=== PATIENT | female | born 1955 | race Caucasian/White ===

== ENCOUNTER 2021-04-20 08:55 | Inpatient (IN) | payer OTHER ==
[~2021-04-20] VITALS: Ht 152.4 cm; Wt 70.3 kg
[~2021-04-20 08:55] MED LIST: CEFADROXIL500 MG PO; CELEXA20 MG PO; COZAAR50 MG PO; D3 + K2 DOTS 11 EACH PO; LIPITOR20 MG PO; PREVACID30 MG PO; TRAMADOL HCL-AP1 TAB PO
[2021-04-22] MEDS ORDERED: VITAMIN D3250 MCG (09:52)
[2021-04-22] MEDS ORDERED: HYDROCHLOROTHIA25 MG (09:53)
[2021-04-22] MEDS ORDERED: ATORVASTATIN CA10 MG (09:53)
[2021-04-22] MEDS ORDERED: CLONAZEPAM0.5 MG (09:53)
[2021-04-22] MEDS ORDERED: B-121000 MC1 (09:53)
[2021-04-24] MEDS ORDERED: NEURONTIN300 MG PO (09:45)
[2021-04-24] MEDS ORDERED: KETO10TA2 PO (09:45)
[2021-04-24] MEDS ORDERED: ULTRAM50 MG PO (09:45)
[2021-04-24] MEDS ORDERED: TYLENOL ARTHRI650 MG PO (09:45)
[2021-04-24] MEDS ORDERED: MIRALAX17 GM PO (09:45)
== END 2021-04-27 09:23 | disposition home or self-care (01) | DRG 337 ==
LOC: SURH 04-22 06:53 → O/R 04-22 06:53 → SURH 04-22 07:00
PROVIDERS: ADMIT Surgery; ATTEND Surgery
PROC: 0WUF0JZ Supplement Abdominal Wall with Synthetic Substitute, Open Approach (ICD-10-PCS; 2021-04-22)
PROC: 0WQF0ZZ Repair Abdominal Wall, Open Approach (ICD-10-PCS; 2021-04-22)
PROC: 0DNW0ZZ Release Peritoneum, Open Approach (ICD-10-PCS; principal; 2021-04-22 07:00)
DX: K43.0 Incisional hernia with obstruction, without gangrene (principal); K42.0 Umbilical hernia with obstruction, without gangrene; N73.6 Female pelvic peritoneal adhesions (postinfective); N99.4 Postprocedural pelvic peritoneal adhesions; I10 Essential (primary) hypertension; E78.49 Other hyperlipidemia; K59.09 Other constipation; F32.89 Other specified depressive episodes